=== PATIENT | female | born 1935 | race African-American/Black ===

== ENCOUNTER → 2018-02-27 | Outpatient (CLI) | payer MEDICARE, MEDICAID | END | disposition home or self-care (01) | LOC: CARD 10:04 | PROVIDERS: ATTEND Psychiatry & Neurology Neurology | DX: M62.40 Contracture of muscle, unspecified site (principal); G44.209 Tension-type headache, unspecified, not intractable ==

== ENCOUNTER 2018-12-04 15:57 | Inpatient (IN) | payer MEDICARE, MEDICAID ==
[~2018-12-04] VITALS: Ht 160 cm; Wt 73.5 kg
[2018-12-04] MEDS ORDERED: SODIUM CHLORIDE 0.9% 1,000 ML IV ONE (16:23)
[2018-12-04 16:47] LABS: BASOPHILS % 1.2 % (0.0-2.0); EOSINOPHILS % 4.6 % (0.0-5.0); HEMATOCRIT. 37.2 % (36.0-48.0); HEMOGLOBIN. 12.1 g/dL (12.0-16.0); LYMPHOCYTES % 30.4 % (20.0-50.0); MEAN CORPUSCULAR HEMOGLOBIN 29.2 pg (28.0-32.0); MEAN CORPUSCULAR VOLUME 89.8 fL (81.0-99.0); MEAN PLATELET VOLUME 8.9 fl (7.4-10.4); MONOCYTES % 6.7 % (2.0-8.0); NEUTROPHILS % 57.1 % (40.0-76.0); PLATELET 208 x1000/uL (130-400); RED BLOOD CELL COUNT 4.14 mill/uL (4.2-5.4); RED CELL DISTRIBUTION WIDTH 14.1 % (11.6-14.6)
[2018-12-04 16:50] LABS: CHLORIDE 106 mEq/L (98-107)
[2018-12-04 16:51] LABS: INR 1.1; PROTHROMBIN TIME 11.2 sec (9.6-11.0)
[2018-12-04] MEDS ORDERED: ASPIRIN 325MG TABLET PO ONE (17:30)
[2018-12-04 20:30] LABS: CLARITY URINE CLEAR (CLEAR); COLOR URINE YELLOW (YELLOW); KETONES URINE NEGATIVE (NEGATIVE); LEUKOCYTE ESTERASE URINE TRACE (NEGATIVE); NITRITE URINE NEGATIVE (NEGATIVE); OCCULT BLOOD URINE NEGATIVE (NEGATIVE); PH URINE 5.5 (4.5-8.0); PROTEIN URINE NEGATIVE (NEGATIVE); SPECIFIC GRAVITY URINE 1.006 (1.005-1.030)
[2018-12-04 22:38] VITALS: BP 137/67
[2018-12-04 22:44] VITALS: BP 179/67
[2018-12-04] MEDS ORDERED: CLONIDINE 0.1MG TABLET PO PRN (23:30)
[2018-12-04] MEDS ORDERED: ACETAMINOPHEN 325MG TABLET PO PRN (23:30)
[2018-12-04] MEDS ORDERED: SODIUM CHLORIDE 0.45% 1,000 ML IV SCH (23:45)
[2018-12-05] VITALS (8 sets, daily range): BP systolic 136–219; BP diastolic 52–82
[2018-12-05] MEDS ORDERED: ESCI10TA PO (05:54)
[2018-12-05] MEDS ORDERED: AMLO2.5T2 PO (05:54)
[2018-12-05] MEDS ORDERED: ASPI-1159 PO (05:54)
[2018-12-05] MEDS ORDERED: ESOM40CA PO (05:54)
[2018-12-05] MEDS ORDERED: LISI-604 PO (05:54)
[2018-12-05] MEDS ORDERED: CLOP75TA16 PO (05:54)
[2018-12-05] MEDS ORDERED: LABE200T28 PO (05:54)
[2018-12-05] MEDS ORDERED: VITA400T7 PO (05:54)
[2018-12-05] MEDS ORDERED: MECL-127 PO (05:54)
[2018-12-05 08:14] LABS: BASOPHILS % 0.8 % (0.0-2.0); EOSINOPHILS % 3.7 % (0.0-5.0); HEMATOCRIT. 37.7 % (36.0-48.0); HEMOGLOBIN. 12.6 g/dL (12.0-16.0); LYMPHOCYTES % 30.2 % (20.0-50.0); MEAN CORPUSCULAR HEMOGLOBIN 29.8 pg (28.0-32.0); MEAN CORPUSCULAR VOLUME 89.3 fL (81.0-99.0); MEAN PLATELET VOLUME 9.3 fl (7.4-10.4); MONOCYTES % 6.7 % (2.0-8.0); NEUTROPHILS % 58.6 % (40.0-76.0); PLATELET 208 x1000/uL (130-400); RED BLOOD CELL COUNT 4.22 mill/uL (4.2-5.4); RED CELL DISTRIBUTION WIDTH 14.4 % (11.6-14.6)
[2018-12-05] MEDS: ASPIRIN 325MG TABLET PO SCH (08:29)
[2018-12-05] MEDS ORDERED: LABETALOL HCL 200MG TABLET PO SCH (09:00)
[2018-12-05] MEDS ORDERED: ENOXAPARIN 30MG/0.3ML SYR SUBCUT SCH (09:00)
[2018-12-05] MEDS: PANTOPRAZOLE 40MG DR TABLET PO SCH (10:03)
[2018-12-05] MEDS: AMLODIPINE 10MG TABLET PO SCH (10:03)
[2018-12-05 11:28] LABS: PLATELET ESTIMATE NORMAL
[2018-12-05] MEDS ORDERED: CLONIDINE 0.2MG TABLET PO PRN (13:30)
[2018-12-05] MEDS ORDERED: GADOBENATE DIMEGLUMINE 529 MG/ML 10ML IV ONE (14:05)
[2018-12-05] MEDS: NEBIVOLOL HCL 5 MG TABLET PO SCH (16:55)
[2018-12-05] MEDS ORDERED: ATORVASTATIN CALCIUM 20MG TABLET PO SCH (21:00)
[2018-12-05] MEDS: ATORVASTATIN CALCIUM 40MG TABLET PO SCH (21:25)
[2018-12-05] MEDS: LOSARTAN POTASSIUM 25 MG TABLET PO SCH (21:25)
[2018-12-06] VITALS (9 sets, daily range): BP systolic 115–208; BP diastolic 44–77
[2018-12-06 06:04] LABS: BASOPHILS % 0.5 % (0.0-2.0); EOSINOPHILS % 3.4 % (0.0-5.0); HEMATOCRIT. 36.5 % (36.0-48.0); HEMOGLOBIN. 12.1 g/dL (12.0-16.0); LYMPHOCYTES % 33.7 % (20.0-50.0); MEAN CORPUSCULAR HEMOGLOBIN 29.8 pg (28.0-32.0); MEAN CORPUSCULAR VOLUME 89.6 fL (81.0-99.0); MEAN PLATELET VOLUME 9.4 fl (7.4-10.4); MONOCYTES % 7.6 % (2.0-8.0); NEUTROPHILS % 54.8 % (40.0-76.0); PLATELET 191 x1000/uL (130-400); RED BLOOD CELL COUNT 4.07 mill/uL (4.2-5.4); RED CELL DISTRIBUTION WIDTH 14.3 % (11.6-14.6)
[2018-12-06 06:18] LABS: CHLORIDE 110 mEq/L (98-107)
[2018-12-06] MEDS: PANTOPRAZOLE 40MG DR TABLET PO SCH (06:24)
[2018-12-06 06:26] LABS: LDL CHOLESTEROL 100 mg/dL (5-100)
[2018-12-06 06:27] LABS: HDL CHOLESTEROL 43 mg/dL (40-59)
[2018-12-06 06:28] LABS: CREATINE KINASE MB FRACTION 6.2 ng/mL (0.5-3.6)
[2018-12-06 06:42] LABS: CREATINE KINASE 1112 IU/L (26-192)
[2018-12-06] MEDS: ASPIRIN 325MG TABLET PO SCH (08:33)
[2018-12-06] MEDS: NEBIVOLOL HCL 5 MG TABLET PO SCH (08:33)
[2018-12-06] MEDS: AMLODIPINE 10MG TABLET PO SCH (08:33)
[2018-12-06] MEDS: LOSARTAN POTASSIUM 25 MG TABLET PO SCH (08:33)
[2018-12-06] MEDS: ENOXAPARIN 40MG/0.4ML SYR SUBCUT SCH (08:34)
[2018-12-06] MEDS ORDERED: CLONIDINE 0.1MG TABLET PO PRN (11:30)
[2018-12-06] MEDS: LOSARTAN POTASSIUM 50 MG TABLET PO SCH (20:40)
[2018-12-06] MEDS: ATORVASTATIN CALCIUM 40MG TABLET PO SCH (20:40)
[2018-12-07] VITALS: BP 134/56
[2018-12-07 04:00] VITALS: BP 130/60
[2018-12-07 07:20] LABS: BASOPHILS % 0.3 % (0.0-2.0); EOSINOPHILS % 4.5 % (0.0-5.0); HEMATOCRIT. 34.9 % (36.0-48.0); HEMOGLOBIN. 11.7 g/dL (12.0-16.0); LYMPHOCYTES % 38.8 % (20.0-50.0); MEAN CORPUSCULAR HEMOGLOBIN 29.7 pg (28.0-32.0); MEAN CORPUSCULAR VOLUME 89.1 fL (81.0-99.0); MEAN PLATELET VOLUME 9.4 fl (7.4-10.4); MONOCYTES % 7.5 % (2.0-8.0); NEUTROPHILS % 48.9 % (40.0-76.0); PLATELET 188 x1000/uL (130-400); RED BLOOD CELL COUNT 3.92 mill/uL (4.2-5.4); RED CELL DISTRIBUTION WIDTH 14.3 % (11.6-14.6)
[2018-12-07 08:00] VITALS: BP 185/101
[2018-12-07] MEDS: LOSARTAN POTASSIUM 50 MG TABLET PO SCH ×2 (08:48→22:10)
[2018-12-07] MEDS: NEBIVOLOL HCL 5 MG TABLET PO SCH (08:48)
[2018-12-07] MEDS: AMLODIPINE 10MG TABLET PO SCH ×2 (08:48→21:00)
[2018-12-07] MEDS: ASPIRIN 325MG TABLET PO SCH (08:48)
[2018-12-07] MEDS: FAMOTIDINE 20MG TABLET PO SCH (08:48)
[2018-12-07] MEDS: ENOXAPARIN 40MG/0.4ML SYR SUBCUT SCH (08:49)
[2018-12-07 12:00] VITALS: BP_SYST 100; BP_SYST 108; BP_SYST 124; BP_DIAS 30; BP_DIAS 47; BP_DIAS 58
[2018-12-07] MEDS ORDERED: MECLIZINE 25MG TABLET PO PRN (12:45)
[2018-12-07 16:00] VITALS: BP_SYST 112; BP_SYST 149; BP_SYST 157; BP_DIAS 50; BP_DIAS 58
[2018-12-07 20:00] VITALS: BP 124/55
[2018-12-07] MEDS ORDERED: NEBIVOLOL HCL 5 MG TABLET PO SCH (21:00)
[2018-12-07] MEDS ORDERED: LABETALOL HCL 200MG TABLET PO SCH (21:00)
[2018-12-07] MEDS: ATORVASTATIN CALCIUM 40MG TABLET PO SCH (22:09)
[2018-12-07] MEDS: LABETALOL HCL 200MG TABLET PO SCH (22:09)
[2018-12-08] VITALS: BP 146/59
[2018-12-08 04:14] VITALS: BP_SYST 118; BP_SYST 120; BP_SYST 147; BP_DIAS 36; BP_DIAS 44; BP_DIAS 48
[2018-12-08 08:00] VITALS: BP 171/126
[2018-12-08] MEDS: LOSARTAN POTASSIUM 50 MG TABLET PO SCH (08:28)
[2018-12-08] MEDS: ENOXAPARIN 40MG/0.4ML SYR SUBCUT SCH (08:29)
[2018-12-08] MEDS: FAMOTIDINE 20MG TABLET PO SCH (08:29)
[2018-12-08] MEDS: LABETALOL HCL 200MG TABLET PO SCH (08:29)
[2018-12-08] MEDS: AMLODIPINE 10MG TABLET PO SCH (08:29)
[2018-12-08] MEDS ORDERED: ASPIRIN 81MG TABLET PO SCH (09:00)
[2018-12-08 10:17] VITALS: BP 150/98
== END 2018-12-08 12:40 | disposition home or self-care (01) | DRG 74 ==
LOC: ER 15:57 → 8WST 17:33 → EDBEDREQTM 17:35 → EDBEDREQ 17:35 → ENRESERV 20:26
PROVIDERS: ADMIT Internal Medicine; ATTEND Internal Medicine
PROC: 4A00X4Z Measurement of Central Nervous Electrical Activity, External Approach (ICD-10-PCS; principal; 2018-12-07)
DX: G90.8 Other disorders of autonomic nervous system (principal); N17.9 Acute kidney failure, unspecified; E46 Unspecified protein-calorie malnutrition; I65.23 Occlusion and stenosis of bilateral carotid arteries; I10 Essential (primary) hypertension; E78.5 Hyperlipidemia, unspecified; E78.00 Pure hypercholesterolemia, unspecified; I25.10 Atherosclerotic heart disease of native coronary artery without angina pectoris; F41.9 Anxiety disorder, unspecified; F32.9 Major depressive disorder, single episode, unspecified; K21.9 Gastro-esophageal reflux disease without esophagitis; I73.9 Peripheral vascular disease, unspecified; M19.90 Unspecified osteoarthritis, unspecified site; J45.909 Unspecified asthma, uncomplicated; Z82.49 Family history of ischemic heart disease and other diseases of the circulatory system; Z86.73 Personal history of transient ischemic attack (TIA), and cerebral infarction without residual deficits; Z90.710 Acquired absence of both cervix and uterus; Z88.6 Allergy status to analgesic agent; I25.2 Old myocardial infarction; Z68.28 Body mass index [BMI] 28.0-28.9, adult; Z79.02 Long term (current) use of antithrombotics/antiplatelets
CPT/HCPCS: 36415; 70547; 71045; 80048; 80061; 82550; 82553; 83735; 83880; 84443; 84484; 85379; 93005; 93880; 93970; 96360; 97162; 97166; 99285; A9577; J1650; J7030